=== PATIENT | female | born 1990 | race Caucasian/White ===

== ENCOUNTER 2023-02-22 01:10 | Emergency (ER) | payer SELFPAY | END 2023-02-22 03:04 | LOC: ED 01:10 | DX: Z53.8 Procedure and treatment not carried out for other reasons (principal) ==

== ENCOUNTER 2023-02-22 01:29 | Observation (INO) | payer SELFPAY ==
[2023-02-22 02:37] VITALS: BP 138/88; PULSE 72; O2SAT 99
== END 2023-02-22 02:30 | disposition home or self-care (01) ==
LOC: OB 01:29
PROVIDERS: ADMIT Family Medicine; ATTEND Family Medicine
DX: Z34.82 Encounter for supervision of other normal pregnancy, second trimester (principal); Z3A.22 22 weeks gestation of pregnancy
CPT/HCPCS: G0378; G0379